=== PATIENT | male | born 1960 | race Two or more races ===

== ENCOUNTER 2021-08-11 03:15 | Emergency (ER) | payer MEDICARE, MEDICAID ==
[~2021-08-11 03:15] MED LIST: CLON-529 PO
[2021-08-11 03:47] LABS: BASOPHILS # (AUTO) 0.1 X10'3 (0-0.2); BASOPHILS % (AUTO) 0.9 % (0-1); EOSINOPHILS # (AUTO) 0.2 X10'3 (0-0.9); EOSINOPHILS % (AUTO) 2.5 % (0-6); HEMATOCRIT 42.8 % (42.0-52.0); HEMOGLOBIN 14.2 g/dl (14.0-17.9); LYMPHOCYTES # (AUTO) 1.9 X10'3 (1.1-4.8); LYMPHOCYTES % (AUTO) 29.4 % (21-51); MEAN CORPUSCULAR HEMOGLOBIN 29.5 PG (27.0-31.0); MEAN CORPUSCULAR HGB CONC 33.3 g/dL (33.0-36.5); MEAN CORPUSCULAR VOLUME 88.8 FL (78-98); MEAN PLATELET VOLUME 8.2 FL (7.4-10.4); MONOCYTES # (AUTO) 0.4 X10'3 (0-0.9); MONOCYTES % (AUTO) 6.8 % (2-12); NEUTROPHILS # (AUTO) 3.9 X10'3 (1.8-7.7); NEUTROPHILS % (AUTO) 60.4 % (42-75); PLATELET COUNT 204 X10'3 (140-440); RED BLOOD COUNT 4.81 X10'6 (4.70-6.10); RED CELL DISTRIBUTION WIDTH 14.2 % (11.5-14.5); WHITE BLOOD COUNT 6.5 X10'3 (4.5-11.0)
[2021-08-11 04:13] LABS: ALANINE AMINOTRANSFERASE 31 U/L (12-78); ALBUMIN 3.7 G/DL (3.4-5.0); ALKALINE PHOSPHATASE 65 IU/L (46-116); ANION GAP 11 (8-16); ASPARTATE AMINO TRANSFERASE 12 U/L (10-37); BILIRUBIN,DIRECT 0.1 MG/DL (0-0.3); BILIRUBIN,TOTAL 0.3 MG/DL (0.1-1.0); BLOOD UREA NITROGEN 17 MG/DL (7-18); BUN/CREATININE RATIO 17.3 (5.4-32.0); CALCIUM 8.7 MG/DL (8.5-10.1); CHLORIDE 109 MMOL/L (99-107); CREATININE 0.98 MG/DL (0.60-1.10); GLUCOSE 113 MG/DL (70-104); LIPASE 658 U/L (73-393); POTASSIUM 3.6 MMOL/L (3.5-5.1); SODIUM 144 MMOL/L (135-145); TOTAL CARBON DIOXIDE 24.5 MMOL/L (24-32); TOTAL PROTEIN 7.3 G/DL (6.4-8.2); eGFR 78 ML/MIN
[2021-08-11] MEDS ORDERED: normal saline 1000ml 1,000 ML IV ONE (04:40)
[2021-08-11 05:30] VITALS: BP 127/65
== END 2021-08-11 06:00 | disposition home or self-care (01) ==
LOC: ER 03:15
DX: N20.0 Calculus of kidney (principal); G89.29 Other chronic pain; Z79.899 Other long term (current) drug therapy
CPT/HCPCS: 36415; 74176; 80048; 80076; 83690; 85025; 99284; J7030

== ENCOUNTER 2021-09-13 12:44 | Emergency (ER) | payer MEDICARE, MEDICAID ==
[~2021-09-13] VITALS: Ht 170.2 cm; Wt 85.7 kg
[2021-09-13 14:06] VITALS: BP 148/85
--- NOTE | 2021-09-13 16:50 | NUR ---
N/A [id number]
== END 2021-09-13 17:35 | disposition left against medical advice (07) ==
LOC: ER 12:45
DX: M54.9 Dorsalgia, unspecified (principal); G89.29 Other chronic pain; I10 Essential (primary) hypertension; I25.2 Old myocardial infarction; Z79.899 Other long term (current) drug therapy
CPT/HCPCS: 99281

== ENCOUNTER 2021-10-29 11:33 | Emergency (ER) | payer OTHER, MEDICARE, MEDICAID ==
[~2021-10-29] VITALS: Ht 170.2 cm; Wt 86.4 kg
[2021-10-29 11:44] VITALS: BP 170/89
[2021-10-29] MEDS ORDERED: acetaminophen 325mg tablet PO ONE (12:40)
[2021-10-29] MEDS ORDERED: ketorolac trometh inj. 60 MG/2 ML VIAL IM ONE (12:40)
== END 2021-10-29 14:09 | disposition home or self-care (01) ==
LOC: ER 11:34
DX: M54.2 Cervicalgia (principal); M25.512 Pain in left shoulder; G89.29 Other chronic pain; Z79.899 Other long term (current) drug therapy
CPT/HCPCS: 72040; 96372; 99283; J1885

== ENCOUNTER 2022-06-01 22:20 | Emergency (ER) | payer MEDICARE, MEDICAID ==
[~2022-06-01] VITALS: Ht 170.2 cm; Wt 84.1 kg
[2022-06-01 23:06] VITALS: BP 160/90
== END 2022-06-01 23:08 | disposition home or self-care (01) ==
LOC: ER 22:20
DX: R51.9 Headache, unspecified (principal); M79.601 Pain in right arm; M79.602 Pain in left arm; G89.29 Other chronic pain; M54.50 Low back pain, unspecified
CPT/HCPCS: 99282

== ENCOUNTER 2023-08-04 09:26 | Emergency (ER) | payer OTHER, MEDICARE, MEDICAID ==
[~2023-08-04] VITALS: Ht 170.2 cm; Wt 83.9 kg
[2023-08-04 09:45] VITALS: BP 130/85; PULSE 80; TEMP 96.3; O2SAT 98
[2023-08-04] MEDS ORDERED: dexamethasone sod phosphate 10mg/ml inj IM STA (10:32)
[2023-08-04] MEDS ORDERED: ketorolac trometh inj. 60 MG/2 ML VIAL IM ONE (10:35)
[2023-08-04 10:52] VITALS: RESP 17
== END 2023-08-04 11:31 | disposition home or self-care (01) ==
LOC: ER 09:27
DX: S13.4XXA Sprain of ligaments of cervical spine, initial encounter (principal); V89.2XXA Person injured in unspecified motor-vehicle accident, traffic, initial encounter; Y93.89 Activity, other specified; Y92.89 Other specified places as the place of occurrence of the external cause; Y99.8 Other external cause status
CPT/HCPCS: 96372; 99284; J1100; J1885

== ENCOUNTER 2024-10-09 20:29 | Emergency (ER) | payer MEDICARE, MEDICAID ==
[~2024-10-09] VITALS: Ht 170.2 cm; Wt 73.3 kg
[2024-10-09 20:31] VITALS: BP 180/100; PULSE 93; RESP 15; TEMP 96.8; O2SAT 97
[2024-10-09] MEDS ORDERED: AMOX-580 PO (22:56)
[2024-10-09] MEDS: amox tr/potassium clavulanate 875/125mg TAB PO ONE (23:14)
== END 2024-10-10 00:09 | disposition home or self-care (01) ==
LOC: ER 20:30
DX: J02.9 Acute pharyngitis, unspecified (principal); G89.29 Other chronic pain; M54.9 Dorsalgia, unspecified; Z79.899 Other long term (current) drug therapy
CPT/HCPCS: 99283